=== PATIENT | male | born 1995 | race Caucasian/White ===

== ENCOUNTER 2018-04-22 10:08 | Emergency (ER) | payer BC ==
[2018-04-22 10:14] VITALS: BP 121/65; PULSE 70; TEMP 98.1; BMI 29.1
--- NOTE | 2018-04-22 10:26 | PDOC ---
History of Present Illness - General Chief Complaint: Pain, Acute Stated Complaint: RIGHT CHEST PAIN Time Seen by Provider: 04/22/18 10:17 History Source: Patient Exam Limitations: No Limitations - History of Present Illness Initial Comments: 04/22/18 10:23 22y M without any known pmhx presents with R chest pain. Pt notse that on thursday, he had a fall down a flight of stairs, while he wa drinking, +loc, head lac that was repaired, had a 'trauma scan' (as noted by his dc paperwork) that was negative. he was feeling well until yesterday when he was holding a laundry hamper on his R arm and pushed open a door with his left arm that created a sharp pain in his R chest. notse that when he moves his arms, and pushes himself up from a laying psotion, it will reproducie his pain. no assocciated headache, n/v, vision changes, focal numbness/tingling/weakness, back pain, lower extremity pain. denies any sob, but notse when he takes a deep breath, he can feel the pain. sheldon leg swelling, hemoptysis. family hx: non contributory. social histroy: social etoh, denies ivdu Past History - Past Medical History Allergies/Adverse Reactions: Allergies Allergy/AdvReac Type Severity Reaction Status Date / Time HAY FEVER Allergy Uncoded 04/22/18 10:08 Home Medications: Ambulatory Orders NK [No Known Home Medication] 04/22/18 Anemia: No Asthma: No Cancer: No Cardiac Disorders: No CVA: No COPD: No CHF: No Dementia: No Diabetes: No GI Disorders: No Disorders: No HTN: No Hypercholesterolemia: No Liver Disease: No Seizures: No Thyroid Disease: No - Surgical History Abdominal Surgery: No Appendectomy: No Cardiac Surgery: No Cholecystectomy: No Lung Surgery: No Neurologic Surgery: No Orthopedic Surgery: Yes (LEFT ACL/MENISCUS REPAIR-2011) - Immunization History Immunization Up to Date: Yes - Suicide/Smoking/Psychosocial Hx Smoking History: Never smoked Have you smoked in the past 12 months: No Hx Alcohol Use: No Drug/Substance Use Hx: No Substance Use Type: Alcohol Hx Substance Use Treatment: No Review of Systems - Review of Systems Able to Perform ROS?: Yes Comments:: 04/22/18 10:39 CONSTITUTIONAL: No reported: Fever, Chills, Diaphoresis, Generalized Weakness, Malaise, Loss of Appetite HEENT: No reported: Rhinorrhea, Nasal Congestion, Throat Pain, Throat Swelling, Difficulty Swallowing, Mouth Swelling, Ear Pain, Eye Pain, Visual Changes CARDIOVASCULAR: No reported: Chest Pain, Syncope, Palpitations, Irregular Heart Rate, Lightheadedness, Peripheral Edema RESPIRATORY: No reported: Cough, Shortness of Breath, SOB with Exertion, Orthopnea, Wheezing , Stridor, Hemoptysis GASTROINTESTINAL: No reported: Abdominal pain, Abdominal Distension, Nausea, Vomiting, Diarrhea, Constipation, Melena, Hematochezia GENITOURINARY: No reported: Dysuria, Frequency, Urgency, Hesitancy, Flank Pain, Genital Pain MUSCULOSKELETAL: +chest pain No reported:, Arthralgia, Joint Swelling, Back pain, Neck Pain SKIN: No reported: Rash, Itching, Pallor HEMEATOLOGIC/IMMUNOLOGIC: No reported: Easy Bleeding, Easy Bruising, Lymphadenopathy, Frequent infections ENDOCRINE: No reported: Unexplained Weight Gain, Unexplained Weight Loss, Heat Intolerance , Cold Intolerance NEUROLOGIC: No reported: Headache, Focal Weakness, Paresthesias, Vertigo, Lightheadedness, Unsteady Gait, Seizure, Mental Status Changes, Incontinence PSYCHIATRIC: No reported: Anxiety, Depression *Physical Exam - Vital Signs Last Vital Signs Temp Pulse Resp BP Pulse Ox 98.1 F 70 16 121/65 100 04/22/18 10:08 04/22/18 10:08 04/22/18 10:08 04/22/18 10:08 04/22/18 10:08 - Physical Exam Comments: 04/22/18 10:41 GENERAL: The patient is awake, alert, and fully oriented, Nontoxic - in no acute distress. HEAD: Normocephalic, several betzaida on his posterior scalp with crusted blood, otherwise non tender, no discharge, erythema, induration. EYES: extraocular movements intact, sclera anicteric, conjunctiva clear. ENT: Normal voice, Moist mucous membranes. NECK: Normal range of motion, supple, no focal ttp to midline cervica/ thoracic.lumbar spine LUNGS: Breath sounds equal, clear to auscultation bilaterally. No wheezes, no rhonchi, no rales. HEART: Regular rate and rhythm, without murmur, rub or gallop. ABDOMEN: Soft, nontender, No guarding, no rebound.No CVA tenderness EXTREMITIES: pain reproducible in pectoralis with shoulder abduction and shoulder press/extension of R, no edema.no ecchymosis noted, no massess NEUROLOGICAL: No facial assymetry, Normal speech, movinga ll 4 extremities spontaneously and symmetrically PSYCH: Normal mood, normal affect. SKIN: Warm, Dry, normal turgor, Moderate Sedation - Procedure Monitoring Vital Signs: Procedure Monitoring Vital Signs Temperature 98.1 F 04/22/18 10:08 Pulse Rate 70 04/22/18 10:08 Respiratory Rate 16 04/22/18 10:08 Blood Pressure 121/65 04/22/18 10:08 O2 Sat by Pulse Oximetry (%) 100 04/22/18 10:08 Medical Decision Making - Medical Decision Making 04/22/18 10:44 suspect msk pain/strain consider ptx - will obtain cxr to r/o ptx will give toradol for his pain if cxr neg, anticiapte dc with supportive care qt home 04/22/18 11:27 pts xray negative will dc with pmd fu supportive care at home erturn precautions were discused *DC/Admit/Observation/Transfer Diagnosis at time of Disposition: Muscle strain of chest wall Qualifiers: Encounter type: initial encounter Qualified Code(s): S29.011A - Strain of muscle and tendon of front wall of thorax, initial encounter - Discharge Dispostion Disposition: HOME Condition at time of disposition: Improved Decision to Admit order: No - Referrals Referrals: Jamshid Smith MD [Staff Physician] - - Patient Instructions Printed Discharge Instructions: DI for Chest Pain Additional Instructions: Return to the emergency department immediately with ANY new, persistent or worsening symptoms ncluding any shortness of breath, coughing of blood, numbness /tingling/weakness or any other concerns. Take ibuprofen every 6 hours for your pain. Avoid any heavy lifting/pressing motions. Hold off on going to the gym or back to work for 5 days until you are better. You MUST call and follow up with your doctor in 4- 5 days for further evaluation of your symptoms. Results were discussed with you. Please make sure your doctor reviews the results of your emergency evaluation. - Post Discharge Activity Forms/Work/School Notes: Back to Work
[2018-04-22] MEDS ORDERED: KETOROLAC TROMETHAMINE 60 MG/2 ML VIAL IM ONE (10:39)
[2018-04-22] MEDS ORDERED: KETOROLAC TROMETHAMINE 60 MG/2 ML VIAL ONE (10:43)
== END 2018-04-22 11:27 | disposition home or self-care (01) ==
LOC: FER 10:08
PROC: 3E0233Z Introduction of Anti-inflammatory into Muscle, Percutaneous Approach (ICD-10-PCS; principal; 2018-04-22)
DX: S29.011D Strain of muscle and tendon of front wall of thorax, subsequent encounter (principal); W10.9XXD Fall (on) (from) unspecified stairs and steps, subsequent encounter
CPT/HCPCS: 71046-TC-FY; 99282-25

== ENCOUNTER 2018-04-23 16:42 | Emergency (ER) | payer BC ==
--- NOTE | 2018-04-23 16:49 | PDOC ---
History of Present Illness - General Chief Complaint: Injury Stated Complaint: REVISIT FOR CHEST/BACK INJURY Time Seen by Provider: 04/23/18 16:49 History Source: Patient Exam Limitations: No Limitations - History of Present Illness Initial Comments: Pt is a 22 yo M, with no significant PMH, who is presenting with complaints of pain over his R upper back for a few days after sustaining a fall 6 days ago. On 04/17, the pt was intoxicated and fell down a flight of stairs. He was taken to [facility] for trauma evaluation, where they repaired a head laceration with betzaida, and did a "trauma scan" which was negative according to pt. Over the past few days, pt has had more pain in the lateral R neck, which radiates down to his R upper back "in his trap". The pain is worsened with arm extension and with pushing himself up off the bed. Pt denies any midline back pain, no numbness/tingling, and no incontinence of urine/stool. Pt denies any recent fevers/chills, headache, vision changes, syncope, chest pain, palpitations, SOB , nausea/vomiting, abdominal pain, urinary symptoms, or diarrhea/constipation. Pt was seen at [place] [facility] yesterday, and had a negative chest x-ray. Pt came back today because "he felt like it was more than a strain and he probably needs an MRI". Social: Pt denies any cigarette or drug use. Does occasionally "binge drink". Pt denies any recent travel or sick contacts. Surgical: no relevant history. Pt had prior T10 compression fracture from lacrosse which did not require surgery. Family: no relevant history. 04/23/18 17:20 Past History - Travel Traveled outside of the country in the last 30 days: No Close contact w/someone who was outside of country & ill: No - Past Medical History Allergies/Adverse Reactions: Allergies Allergy/AdvReac Type Severity Reaction Status Date / Time HAY FEVER Allergy Uncoded 04/22/18 10:08 Home Medications: Ambulatory Orders Methocarbamol [Robaxin -] 500 mg PO BID PRN #10 tablet 04/23/18 Naproxen 500 mg PO BID PRN #20 tablet 04/23/18 Anemia: No Asthma: No Cancer: No Cardiac Disorders: No CVA: No COPD: No CHF: No Dementia: No Diabetes: No GI Disorders: No Disorders: No HTN: No Hypercholesterolemia: No Liver Disease: No Seizures: No Thyroid Disease: No - Surgical History Abdominal Surgery: No Appendectomy: No Cardiac Surgery: No Cholecystectomy: No Lung Surgery: No Neurologic Surgery: No Orthopedic Surgery: Yes (LEFT ACL/MENISCUS REPAIR-2011) - Immunization History Immunization Up to Date: Yes - Suicide/Smoking/Psychosocial Hx Smoking History: Never smoked Have you smoked in the past 12 months: No Hx Alcohol Use: No Drug/Substance Use Hx: No Substance Use Type: Alcohol Hx Substance Use Treatment: No Review of Systems - Review of Systems Able to Perform ROS?: Yes Is the patient limited Hungarian proficient: No Constitutional: Yes: Weight Stable. No: Chills, Diaphoresis, Fever, Loss of Appetite, Malaise, Weakness HEENTM: No: Recent change in vision, Nose Pain, Nose Congestion, Throat Swelling , Difficulty Swallowing Respiratory: No: Cough, Shortness of Breath Cardiac (ROS): No: Chest Pain, Edema, Irregular Heart Rate, Lightheadedness, Palpitations, Syncope, Chest Tightness ABD/GI: No: Constipated, Diarrhea, Nausea, Poor Appetite, Poor Fluid Intake, Vomiting : No: Burning, Dysuria, Flank Pain, Pain, Urgency Musculoskeletal: Yes: See HPI, Back Pain, Muscle Pain. No: Joint Pain, Joint Swelling, Muscle Weakness, Neck Pain, Joint Stiffness Integumentary: Yes: See HPI (head laceration with repair 2/2 fall). No: Bruising, Rash Neurological: No: Headache, Numbness, Paresthesia, Weakness, Unsteady Gait, Ataxia, Dizziness Psychiatric: No: Sleep Pattern Change, Change in Appetite Endocrine: No: Increased Urine, Change in Weight Hematologic/Lymphatic: No: Anemia, Blood Clots, Easy Bleeding, Easy Bruising All Other Systems: Reviewed and Negative *Physical Exam - Vital Signs 04/23/18 17:37 Vital Signs Temperature 98.8 F 04/23/18 16:43 Pulse Rate 102 H 04/23/18 16:43 Respiratory Rate 16 04/23/18 16:43 Blood Pressure 143/85 04/23/18 16:43 O2 Sat by Pulse Oximetry (%) 99 04/23/18 16:43 - Physical Exam Comments: Vitals stable, pt afebrile. Pt in NAD, normal body habitus. PE showed pt alert and oriented and was able to ambulate in the department. office machine installer generally intact, muscular strength and sensation intact. Well-healing laceration with intact betzaida on the occiput. Eyes PERRLA, EOMI. Oropharynx without erythema or exudates, no LAD b/l. No nasal congestion, hearing intact. Clear heart sounds, S1/S2, no JVD, b/l pedal edema, or heart murmur. Clear lung sounds, no respiratory distress, wheezes, crackles, or accessory muscle use. Reproducible point tenderness over R trapezius, appears to have muscle spasm in R upper back. No tenderness of the scapula or clavicle, no midline spinal tenderness, no step-offs or crepitus. No tenderness in the shoulder with arm flexion and extension, rotator cuff appears intact. No abdominal or CVA tenderness to palpation, no rebound, no guarding. Abdomen soft, non-distended, and with normoactive bowel sounds. Skin without jaundice or rash. 04/23/18 17:37 Medical Decision Making - Medical Decision Making Pt was seen at bedside, also will be seen by attending Dr. Sood. Pt presenting with complaints of pain over his R upper back for a few days after sustaining a fall 6 days ago. On 04/17, the pt was intoxicated and fell down a flight of stairs. He was taken to [facility] for trauma evaluation, where they repaired a head laceration with betzaida, and did a "trauma scan" which was negative according to pt. Over the past few days, pt has had more pain in the lateral R neck, which radiates down to his R upper back "in his trap". The pain is worsened with arm extension and with pushing himself up off the bed. Pt denies any midline back pain, no numbness/tingling, and no incontinence of urine/stool. Pt denies any recent fevers/chills, headache, vision changes, syncope, chest pain, palpitations, SOB, nausea/vomiting, abdominal pain, urinary symptoms, or diarrhea/constipation. Pt was seen at [facility] yesterday, and had a negative chest x-ray. Pt came back today because "he felt like it was more than a strain and he probably needs an MRI". Vitals stable, pt afebrile. Pt in NAD, normal body habitus. PE showed pt alert and oriented and was able to ambulate in the department. office machine installer generally intact, muscular strength and sensation intact. Well-healing laceration with intact betzaida on the occiput. Eyes PERRLA, EOMI. Oropharynx without erythema or exudates, no LAD b/l. No nasal congestion, hearing intact. Clear heart sounds, S1/S2, no JVD, b/l pedal edema, or heart murmur. Clear lung sounds, no respiratory distress, wheezes, crackles, or accessory muscle use. Reproducible point tenderness over R trapezius, appears to have muscle spasm in R upper back. No tenderness of the scapula or clavicle, no midline spinal tenderness, no step-offs or crepitus. No tenderness in the shoulder with arm flexion and extension, rotator cuff appears intact. No abdominal or CVA tenderness to palpation, no rebound, no guarding. Abdomen soft, non-distended, and with normoactive bowel sounds. Skin without jaundice or rash. Considering muscle spasm vs rotator cuff injury vs compression of cervical nerve /disc herniation. Unlikely any acute fractures, as chest x-ray yesterday (5 days post fall) showed no fractures, no pneumothorax. No further imaging required at this point. Provided 800 mg PO motrin and 500 mg PO robaxin for improvement of pain and muscle spasm. Pt can be discharged to home with follow-up. Pt advised to follow-up with PCP in 1-2 days and has been referred to orthopedics. Strict return precautions provided with pt understanding. Pt advised to follow-up with orthopedics in 1 week if his pain does not improve. Sent naproxen and robaxin to pt pharmacy. 04/23/18 17:11 *DC/Admit/Observation/Transfer Diagnosis at time of Disposition: Muscle spasm - Discharge Dispostion Disposition: HOME Condition at time of disposition: Good Decision to Admit order: No - Referrals Referrals: [facility] [place] [Provider Group] Bhargav Randall DO [Staff Physician] - - Patient Instructions Printed Discharge Instructions: DI for Back Spasm Additional Instructions: You were seen in the ER today for spasm in your chest and back. Please follow- up with your primary care doctor and go to see the orthopedics doctor if your pain does not improve by next week. Please return to the ER if you have any worsening pain that does not improve with the medications we have provided, development of fevers or chills, loss of consciousness, numbness/tingling/ weakness in your arms or legs, incontinence of stool or urine, inability to tolerate food or fluids, or any other concerns. We have sent medication for inflammation (naproxen) and muscle spasm (robaxin) to your pharmacy. Please take this medication as prescribed. - Post Discharge Activity Forms/Work/School Notes: Back to Work
[2018-04-23] MEDS ORDERED: IBUPROFEN 400 MG TABLET (FP) PO ONE ×2 (17:09→17:15)
[2018-04-23] MEDS ORDERED: METHOCARBAMOL 500 MG TABLET PO ONE (17:09)
[2018-04-23 17:12] VITALS: BP 143/85; PULSE 102; TEMP 98.8; BMI 29.1
[2018-04-23] MEDS ORDERED: METHOCARBAMOL 500 MG TABLET ONE (17:15)
--- NOTE | 2018-04-23 17:24 | PDOC ---
Attending Attestation - Resident Resident Name: Jen Hoffmanana - ED Attending Attestation I have performed the following: I have examined & evaluated the patient, The case was reviewed & discussed with the resident, I agree w/resident's findings & plan, Exceptions are as noted - HPI HPI: 04/23/18 17:47 Reviewed Residents HPI - Physicial Exam PE: 04/23/18 17:47 Reviewed Residents PE - Medical Decision Making 04/23/18 17:47 22 years old status post fall approximately 1 week ago now with trapezius spasm Patient was seated [facility] had a trauma series CAT scan done with no acute injury noted Here in the ED reproducible trap pain we'll recommend hydration NSAIDs muscle relaxant and orthopedic follow-up Normal neurologic exam Findings, need for follow-up and strict return instructions discussed with patient.
== END 2018-04-23 17:36 | disposition home or self-care (01) ==
LOC: FER 16:42
DX: M62.830 Muscle spasm of back (principal)
CPT/HCPCS: 99281-25

== ENCOUNTER 2018-04-26 14:00 | Emergency (ER) | payer BC ==
[2018-04-26 14:14] VITALS: BP 123/85; PULSE 75; TEMP 98.5; BMI 29.1
--- NOTE | 2018-04-26 14:24 | PDOC ---
Suture Removal/Wound Check HPI - History of Present Illness Chief Complaint: Suture/Staple Removal (other) Stated Complaint: STAPLE REMOVAL FROM SCALP Time Seen by Provider: 04/26/18 14:11 History Source: Yes: Patient Exam Limitations: Yes: No Limitations Treated at: Other ED ([facility]) Date of Last ED visit: 04/17/18 (6 liberty to posterior scalp) - Previous ED Treatment Type of procedure performed on last visit: Yes: Laceration Repair Tetanus Immunization: Yes: Up to Date, Last Tetanus <5 years ago - Onset of Previous Treatment Date of Occurence: 04/17/18 Comment:: 04/26/18 14:21 22yo male with a fall over a banister on 04/17 presents for staple removal. Pt was treated at [facility] and given 6 liberty to the back of his head. Pt denies rodas. No neck pain. No midline c/t/l spine ttp. Pt states his tetanus is UTD. Pt denies dizziness. No n/v/d. No f/c. No other complaitns. Pt states he had a "trauma scan" that was negative at [facility]. Pt has been seen in the ED 2 other visits for muscle spasms, which he state are improving. Pmhx: denies Allergies: seasonal PShx: ACL repair 04/26/18 14:24 Past History - Past Medical History Allergies/Adverse Reactions: Allergies Allergy/AdvReac Type Severity Reaction Status Date / Time HAY FEVER Allergy Uncoded 04/22/18 10:08 Home Medications: Ambulatory Orders Methocarbamol [Robaxin -] 500 mg PO BID PRN #10 tablet 04/23/18 Naproxen 500 mg PO BID PRN #20 tablet 04/23/18 Cephalexin Monohydrate [Keflex -] 500 mg PO Q6H #28 capsule 04/26/18 Anemia: No Asthma: No Cancer: No Cardiac Disorders: No CVA: No COPD: No CHF: No Dementia: No Diabetes: No GI Disorders: No Disorders: No HTN: No Hypercholesterolemia: No Liver Disease: No Seizures: No Thyroid Disease: No - Surgical History Abdominal Surgery: No Appendectomy: No Cardiac Surgery: No Cholecystectomy: No Lung Surgery: No Neurologic Surgery: No Orthopedic Surgery: Yes (LEFT ACL/MENISCUS REPAIR-2010) - Immunization History TDAP Vaccination: Yes Immunization Up to Date: Yes - Suicide/Smoking/Psychosocial Hx Smoking History: Never smoked Have you smoked in the past 12 months: No Hx Alcohol Use: Yes Drug/Substance Use Hx: No Substance Use Type: Alcohol Hx Substance Use Treatment: No *Review of Systems - Review of Systems Able to Perform ROS?: Yes Constitutional: No: Chills, Fever HEENTM: No: Eye Pain, Blurred Vision, Recent change in vision, Nose Pain, Throat Pain Respiratory: No: Cough, Shortness of Breath Cardiac (ROS): No: Chest Pain ABD/GI: No: Diarrhea, Nausea, Vomiting, Abdominal cramping : No: Burning, Dysuria, Hematuria Musculoskeletal: Yes: Back Pain, Muscle Pain Integumentary: Yes: Other (posterior scalp lac with liberty in place) Neurological: No: Headache, Numbness, Paresthesia, Tingling, Weakness, Unsteady Gait, Ataxia All Other Systems: Reviewed and Negative *Physical Exam - Vital Signs Last Vital Signs Temp Pulse Resp BP Pulse Ox 98.5 F 75 16 123/85 100 04/26/18 14:06 04/26/18 14:06 04/26/18 14:06 04/26/18 14:06 04/26/18 14:06 - Physical Exam General Appearance: Yes: Nourished, Appropriately Dressed. No: Apparent Distress HEENT: positive: EOMI, Normal Voice Neck: positive: Supple, Other (no midline c spine ttp). negative: Tender Respiratory/Chest: positive: Lungs Clear, Normal Breath Sounds. negative: Chest Tender, Respiratory Distress Cardiovascular: positive: Regular Rhythm, Regular Rate, S1, S2. negative: Edema Gastrointestinal/Abdominal: positive: Normal Bowel Sounds, Soft. negative: Tender Musculoskeletal: positive: Normal Inspection, Muscle Spasm (R paravertebral muscle spasm-improving). negative: Vertebral Tenderness Extremity: positive: Normal Capillary Refill, Normal Inspection, Normal Range of Motion. negative: Swelling, Calf Tenderness Integumentary: positive: Normal Color, Dry, Warm, Other (liberty to posterior scalp- small area of clotted blood over the liberty) Neurologic: positive: clinical laboratory director II-XII NML intact, Fully Oriented, Alert, Normal Mood/ Affect, Normal Response, Motor Strength 5/5, Other (ambulatory with a steady gait) Moderate Sedation - Procedure Monitoring Vital Signs: Procedure Monitoring Vital Signs Temperature 98.5 F 04/26/18 14:06 Pulse Rate 75 04/26/18 14:06 Respiratory Rate 16 04/26/18 14:06 Blood Pressure 123/85 04/26/18 14:06 O2 Sat by Pulse Oximetry (%) 100 04/26/18 14:06 Medical Decision Making - Medical Decision Making 04/26/18 14:27 a/p: 22yo male with liberty to posterior scalp. -liberty removed and hematoma removed -wound still open -states he has been wearing a hard hat and it has been rubbing the wound daily -wound washed out with extensive saline 4 liberty applied to the wound again- no active bleeding, wound well approx -will place on abx for delayed healing discussed follow up precautions, discussed all reasons to return to the ED discussed wound care while wearing a hard hat discussed all reasons to return to the ED *DC/Admit/Observation/Transfer Diagnosis at time of Disposition: Removal of liberty, Open scalp wound, Sutured skin wound - Discharge Dispostion Disposition: HOME Condition at time of disposition: Stable Decision to Admit order: No - Prescriptions Prescriptions: Cephalexin Monohydrate [Keflex -] 500 mg PO Q6H #28 capsule - Referrals Referrals: Zackary Ma MD [Staff Physician] - - Patient Instructions Printed Discharge Instructions: DI for Suture Removal, DI for Closed Head Injury, DI for Laceration Repair -- Liberty Additional Instructions: Please keep the wound clean and dry. Please apply topical antibiotic cream to the wound. Please return to the ED with any further concerns or complaints. Please follow up with your PMD. Please return to the ED in 2 days for a wound check [facility] Dr. [facility] Please return in 1 week for suture removal. - Post Discharge Activity - Attestations Physician Attestion: 04/26/18 14:28 I, Dr. Betsy Lopes, DO, attest that this document has been prepared under my direction and personally reviewed by me in its entirety. I further attest, that it accurately reflects all work, treatment, procedures and medical decision -making performed by me.
[2018-04-26] MEDS ORDERED: CEPHALEXIN MONOHYDRATE 500 MG CAPSULE (UD) PO ONE (14:54)
[2018-04-26] MEDS ORDERED: CEPHALEXIN MONOHYDRATE 500 MG CAPSULE (UD) ONE (15:00)
== END 2018-04-26 15:05 | disposition home or self-care (01) ==
LOC: FER 14:00
PROC: 0HQ0XZZ Repair Scalp Skin, External Approach (ICD-10-PCS; principal; 2018-04-26)
DX: Z48.01 Encounter for change or removal of surgical wound dressing (principal)
CPT/HCPCS: 99281-25

== ENCOUNTER 2018-05-06 18:23 | Emergency (ER) | payer BC ==
--- NOTE | 2018-05-06 18:35 | PDOC ---
Suture Removal/Wound Check HPI - History of Present Illness Chief Complaint: Suture/Staple Removal(Here) Stated Complaint: STAPLE REMOVAL Time Seen by Provider: 05/06/18 18:34 History Source: Yes: Patient Exam Limitations: Yes: No Limitations Treated at: [facility] ED Date of Last ED visit: 04/17/18 (4 betzaida to posterior scalp) Past History - Past Medical History Allergies/Adverse Reactions: Allergies Allergy/AdvReac Type Severity Reaction Status Date / Time HAY FEVER Allergy Mild Uncoded 05/06/18 18:26 Anemia: No Asthma: No Cancer: No Cardiac Disorders: No CVA: No COPD: No CHF: No Dementia: No Diabetes: No GI Disorders: No Disorders: No HTN: No Hypercholesterolemia: No Liver Disease: No Seizures: No Thyroid Disease: No - Surgical History Abdominal Surgery: No Appendectomy: No Cardiac Surgery: No Cholecystectomy: No Lung Surgery: No Neurologic Surgery: No Orthopedic Surgery: Yes (LEFT ACL/MENISCUS REPAIR-2010) - Immunization History TDAP Vaccination: Yes Immunization Up to Date: Yes - Suicide/Smoking/Psychosocial Hx Smoking History: Never smoked Have you smoked in the past 12 months: No Hx Alcohol Use: Yes Drug/Substance Use Hx: No Substance Use Type: Alcohol Hx Substance Use Treatment: No *Physical Exam - Physical Exam General Appearance: Yes: Appropriately Dressed. No: Apparent Distress HEENT: positive: Normal Voice Neck: positive: Trachea midline, Supple Respiratory/Chest: negative: Respiratory Distress, Accessory Muscle Use Cardiovascular: negative: Bradycardia, Tachycardia Integumentary: positive: Other (4 betzaida to posterior scalp. No bleeding or discharge. Wound well appearing.) Neurologic: positive: Alert, Normal Mood/Affect Medical Decision Making - Medical Decision Making 22 y/o male presenting for removal of scalp betzaida and wound check. 4x betzaida were removed from the posterior scalp. Wound is well approximated, clean, dry, and intact. No signs of infection. Pt to follow up with PCP as needed. Return precautions provided. *DC/Admit/Observation/Transfer Diagnosis at time of Disposition: Removal of betzaida - Discharge Dispostion Disposition: HOME Condition at time of disposition: Good Decision to Admit order: No - Referrals - Patient Instructions Printed Discharge Instructions: DI for Suture Removal Additional Instructions: You were seen today for staple removal. 4 betzaida were removed from your scalp. You may experience a small amount of bleeding and tenderness. Apply direct pressure to stop the bleeding. Be careful with the area for the next several days. The wound has not completely closed and could be easily re-opened. Follow up with your primary care doctor within the next week or as needed to make sure you are healing. You will need to call to make an appointment. Go to the nearest emergency department if your condition worsens or you feel like you need an additional emergent evaluation. Print Language: UKRAINIAN - Post Discharge Activity
[2018-05-06 18:37] VITALS: BP 136/84; PULSE 83; TEMP 98.1; BMI 28.5
--- NOTE | 2018-05-06 18:39 | PDOC ---
Attending Attestation - Resident Resident Name: Chester Christian - ED Attending Attestation I have performed the following: I have examined & evaluated the patient, The case was reviewed & discussed with the resident, I agree w/resident's findings & plan, Exceptions are as noted - HPI HPI: 05/06/18 18:38 22y M presents for staple removal no other complaints including pain, feverchills, bleeding discharge on exam: well appearing, no distress healing wound on scalp, 4 betzaida removed some bleeding after removal of staple and scab fell off but wound appears approximated and healing well no signs of infection - Physicial Exam PE: 05/08/18 05:41 see above - Medical Decision Making 05/08/18 05:41 see above
== END 2018-05-06 18:44 | disposition home or self-care (01) ==
LOC: FER 18:23
DX: Z48.02 Encounter for removal of sutures (principal)
CPT/HCPCS: 99281-25

== ENCOUNTER 2018-05-12 16:16 | Emergency (ER) | payer OTHER, BC ==
[2018-05-12 16:25] VITALS: BP 138/87; PULSE 100; TEMP 98.8; BMI 28.5
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
[2018-05-12] MEDS ORDERED: ACETAMINOPHEN 500 MG TABLET (FP) PO ONE (16:55)
[2018-05-12] MEDS ORDERED: ACETAMINOPHEN 325 MG TABLET (FP) ONE (16:57)
== END 2018-05-12 17:22 | disposition home or self-care (01) ==
LOC: FER 16:16
DX: M54.9 Dorsalgia, unspecified (principal); V43.52XA Car driver injured in collision with other type car in traffic accident, initial encounter; Y93.89 Activity, other specified; Y92.410 Unspecified street and highway as the place of occurrence of the external cause
CPT/HCPCS: 99282-25

== ENCOUNTER 2024-05-04 12:41 | Observation (INO) | payer BC ==
[2024-05-04] MEDS: ACETAMINOPHEN 1000 MG/100 ML BAG IVPB ONE (13:00)
[2024-05-04] MEDS ORDERED: ONDANSETRON 4 MG/2 ML VIAL ONE ×2 (13:00→15:43)
[2024-05-04] MEDS ORDERED: ACETAMINOPHEN INJECTION 100 ML ONE (13:00)
[2024-05-04] MEDS: SODIUM CHLORIDE 0.9% 500 ML INFUS.BAG IV ONE (13:09)
[2024-05-04] MEDS: ONDANSETRON 4 MG/2 ML VIAL IVPUSH ONE (13:10)
[2024-05-04 13:54] LABS: HEMATOCRIT 44.9 % (35.4-49); HEMOGLOBIN 15.7 G/dL (11.7-16.9); MCH 32.2 pg (25.7-33.7); MEAN CELL VOLUME 92.1 fl (80-96); MEAN PLT VOLUME 9.2 fl (7.5-11.1); RBC 4.88 10^6/uL (4.00-5.60); RDW 13.6 % (11.9-15.9); WHITE BLOOD COUNT 10.3 10^3/uL (4.0-10.8)
[2024-05-04 14:01] LABS: PLATELET ESTIMATE ADEQUATE
[2024-05-04 14:16] LABS: INR 1.01 (0.83-1.09); PROTHROMBIN TIME (PATIENT) 11.5 SEC (9.7-13.0)
[2024-05-04 14:19] LABS: ACTIVATED PTT 31.7 SECONDS (25.2-36.5)
[2024-05-04] MEDS ORDERED: ONDANSETRON 4 MG/2 ML VIAL IVPUSH PRN ×2 (14:22→14:50)
[2024-05-04] MEDS ORDERED: cefTRIAXone SODIUM 1 GM VIAL ONE (14:28)
[2024-05-04 14:31] LABS: ALBUMIN 4.5 g/dl (3.4-5.0); BILIRUBIN,TOTAL 0.8 mg/dl (0.2-1); POTASSIUM 3.8 mmol/L (3.5-5.1); TOT PROT 6.7 g/dl (6.4-8.2)
[2024-05-04] MEDS: CEFTRIAXONE 1 GM in DEXTROSE 5%-WATER - 100 ML IVPB ONE (14:38)
[2024-05-04] MEDS: LACTATED RINGERS SOLUTION 1,000 ML/1,000 ML INFUS.BAG IV SCH (14:39)
[2024-05-04] MEDS ORDERED: LACTATED RINGERS SOLUTION 1,000 ML IV SCH (15:00)
[2024-05-04] MEDS ORDERED: PROPOFOL 60 ML ONE (15:03)
[2024-05-04] MEDS ORDERED: SUCCINYLCHOLINE CHLORIDE 200 MG/10 ML SYRINGE ONE (15:03)
[2024-05-04] MEDS ORDERED: BUPIVACAINE HCL/PF 2.5 MG/ML - 30 ML VIAL IJ ONE (15:03)
[2024-05-04] MEDS ORDERED: MIDAZOLAM HCL 2 MG/2 ML SINGLE DOSE VIAL ONE (15:23)
[2024-05-04] MEDS ORDERED: cefOXitin SODIUM 2 GM VIAL (RESTRICTED TO ID) IVPB ONE (15:26)
[2024-05-04] MEDS ORDERED: ROCURONIUM BROMIDE 50 MG/5 ML VIAL ONE (15:38)
[2024-05-04] MEDS ORDERED: DEXAMETHASONE SOD PHOSPHATE 4 MG/1 ML VIAL ONE (15:43)
[2024-05-04] MEDS ORDERED: SUGAMMADEX SODIUM 200 MG/2 ML VIAL ONE (15:50)
[2024-05-04] MEDS ORDERED: KETOROLAC TROMETHAMINE 30 MG/1 ML VIAL ONE (15:50)
[2024-05-04] MEDS ORDERED: SEVOFLURANE 250 ML BTL ONE (16:04)
[2024-05-04] MEDS: BUPIVACAINE HCL/PF 0.25% (2.5MG/ML) 10 ML VIAL IJ ONE (16:25)
[2024-05-04] MEDS ORDERED: oxyCODONE HCL 5 MG TABLET PO PRN ×2 (16:37)
[2024-05-04] MEDS ORDERED: PROMETHAZINE HCL 25 MG/1 ML VIAL IVPB PRN (16:37)
[2024-05-04] MEDS ORDERED: FENTANYL CITRATE/PF 50 MCG/ML VIAL ONE ×2 (17:02→17:13)
[2024-05-04 18:32] VITALS: BMI 30.8
[2024-05-04] MEDS: ACETAMINOPHEN 1000 MG/100 ML BAG IVPB PRN (20:46)
[2024-05-05] MEDS ORDERED: oxyCODONE HCL 5 MG TABLET PO PRN (00:31)
[2024-05-05] MEDS ORDERED: KETOROLAC TROMETHAMINE 30 MG/1 ML VIAL IVPUSH PRN (00:32)
[2024-05-05] MEDS: oxyCODONE HCL 5 MG TABLET PO PRN ×2 (00:34→10:43)
[2024-05-05] MEDS: KETOROLAC TROMETHAMINE 30 MG/1 ML VIAL IVPUSH SCH (08:30)
[2024-05-05 08:38] VITALS: BP 130/90; PULSE 68; RESP 19; TEMP 97.4
[2024-05-05 09:09] LABS: BASO % 0.1 % (0-2.0); HEMATOCRIT 42.3 % (35.4-49); HEMOGLOBIN 14.3 GM/dL (11.7-16.9); LYMPH % 12.1 % (8-40); MCHC 33.8 g/dl (32.0-35.9); MEAN CELL VOLUME 91.8 fl (80-96); MEAN PLT VOLUME 8.7 fl (7.5-11.1); MONO % 4.2 % (3.8-10.2); NEUT % 83.6 % (42.8-82.8); PLATELET COUNT 253 10^3/uL (134-434); RBC 4.61 M/mm3 (4.00-5.60); RDW 13.1 % (11.9-15.9); WHITE BLOOD COUNT 11.9 K/mm3 (4.0-10.0)
[2024-05-05 12:08] LABS: ALBUMIN 4.4 g/dl (3.4-5.0); BILIRUBIN,TOTAL 0.7 mg/dl (0.2-1); CALCIUM 9.2 mg/dl (8.5-10.1); POTASSIUM 4.5 mmol/L (3.5-5.1); TOT PROT 6.7 g/dl (6.4-8.2)
[2024-05-05 19:44] LABS: HIV INTERPRETATION NEGATIVE (NEGATIVE)
== END 2024-05-05 12:15 | disposition home or self-care (01) ==
LOC: FER 12:41 → FASUSAT 14:16 → FM/S 14:21 → FASUSAT 15:14 → FM/S 17:42
PROVIDERS: ADMIT Internal Medicine; ATTEND Internal Medicine
PROC: 3E033NZ Introduction of Analgesics, Hypnotics, Sedatives into Peripheral Vein, Percutaneous Approach (ICD-10-PCS; 2024-05-04)
PROC: 3E03329 Introduction of Other Anti-infective into Peripheral Vein, Percutaneous Approach (ICD-10-PCS; 2024-05-04)
PROC: 3E0337Z Introduction of Electrolytic and Water Balance Substance into Peripheral Vein, Percutaneous Approach (ICD-10-PCS; 2024-05-04)
PROC: 3E0333Z Introduction of Anti-inflammatory into Peripheral Vein, Percutaneous Approach (ICD-10-PCS; 2024-05-04)
PROC: 3E033GC Introduction of Other Therapeutic Substance into Peripheral Vein, Percutaneous Approach (ICD-10-PCS; 2024-05-04)
PROC: 0DTJ4ZZ Resection of Appendix, Percutaneous Endoscopic Approach (ICD-10-PCS; principal; 2024-05-05)
DX: K35.80 Unspecified acute appendicitis (principal); J30.1 Allergic rhinitis due to pollen
CPT/HCPCS: 36415; 74177-TC; 80053; 81003; 81015; 83605; 83690; 85025; 85027; 85610; 85730; 86803; 86850; 86900; 86901; 87389; 88304-TC; 94760; 99285-25; G0378; J0131; Q9967